=== PATIENT | female | born 1990 | race Caucasian/White ===

== ENCOUNTER 2017-08-04 09:31 | Observation (INO) | payer OTHER ==
[2017-08-04] MEDS ORDERED: SODIUM CHLORIDE 0.9% 500 ML 500 ML IV ONE (09:45)
[2017-08-04] MEDS ORDERED: HYDROMORPHONE 1 MG/ML SYRINGE IV PRN (10:21)
[2017-08-04] MEDS ORDERED: APAP/HYDROCODONE 325/5 TAB PO PRN (12:49)
[2017-08-04] MEDS ORDERED: DIPHENHYDRAMINE 25 MG CAP PO ONE (19:55)
[2017-08-04] MEDS ORDERED: DIPHENHYDRAMINE 25 MG CAP ONE (20:17)
[2017-08-04] MEDS ORDERED: PROCHLORPERAZINE MALEATE 5 MG TAB PO SCH (21:00)
[2017-08-04] MEDS: SODIUM CHLORIDE 0.9% FLUSH 10 ML SOL IV SCH (21:09)
[2017-08-05 01:32] VITALS: RESP 20
[2017-08-05 07:37] LABS: BASOPHILS % (AUTO) 0 % (0-3); EOSINOPHILS % (AUTO) 2 % (0-9); HEMATOCRIT 28 % (35-47); MEAN CORPUSCULAR HGB CONC 35.3 gm/dl (32.0-36.0); MEAN CORPUSCULAR VOLUME 84 fL (81-99); MONOCYTES % (AUTO) 5.9 % (0-12)
[2017-08-05 08:30] VITALS: BP 100/65; PULSE 94; TEMP 98.2
[2017-08-05] MEDS: SODIUM CHLORIDE 0.9% FLUSH 10 ML SOL IV SCH (08:30)
== END 2017-08-05 09:50 | disposition home or self-care (01) | DRG 778 ==
LOC: OB 09:31
PROVIDERS: ADMIT Family Medicine; ATTEND Family Medicine
DX: O20.0 Threatened abortion (principal); Z3A.18 18 weeks gestation of pregnancy
CPT/HCPCS: 36415; 85025; Q0164; A9270-GY